=== PATIENT | male | born 1960 | race Caucasian/White ===

== ENCOUNTER 2020-11-11 12:17 | Emergency (ER) | payer MEDICARE, SELFPAY ==
[2020-11-11 12:18] VITALS: BP 146/106; PULSE 113; RESP 20; TEMP 36.8; O2SAT 97; BMI 30.1
--- NOTE | 2020-11-11 12:49 | HMH.EDGENADL ---
ED Disposition Clinical Impression: Sciatic leg pain, Muscle spasm Disposition: Home, Self-Care Condition on Discharge: Good Instructions: DI for Back Pain With Sciatica Prescriptions: Cyclobenzaprine HCl [Flexeril 10mg tablet] 5 mg PO TID PRN #5 tab PRN Reason: spasm Prescription Printed methylPREDNISolone [Medrol] 4 mg PO DIRECTED #21 pack Prescription Printed Referrals: Aldo Cavazos [Primary Care Provider] - 3 days - Critical Care Critical Care Time: No Attestation: On , the high probability of a clinically significant, sudden or life threatening deterioration of the following system(s) required my full and direct attention, intervention and personal management. The time I documented below is in addition to time spent performing reported procedures but includes the following listed in this critical care notation. Medical Decision Making - Medical Records Medical records reviewed: Yes: I reviewed the patient's medical records. - Jamison Inquiry Pt receiving controlled substance: No Vital Signs: 11/11/20 12:18 Temperature 98.3 F Temperature Source Oral Pulse Rate [Right Radial] 113 H Respiratory Rate 20 Blood Pressure [Right Arm] 146/106 H Blood Pressure Mean [Right Arm] 119 Blood Pressure Source [Right Arm] Automatic Cuff Blood Pressure Position [Right Arm] Sitting 02 Sat by Pulse Oximetry 97 Oxygen Delivery Method Room Air Medical Decision Narrative: Patient with only new complaint of back pain. His shortness of breath is baseline and not new, so this will not need emergency department work-up. His oxygen saturations are 97% on room air. He states history of concern today is his right lower back pain. He does have a palpable muscle spasm in the right lower back. Flexeril may not be efficacious if it is significantly out of date. He has ibuprofen at home, will prescribe Flexeril and Medrol Dosepak, advised follow-up with primary care provider to consider physical therapy and appointment with spine surgeon in the event he needs more specialized or advanced care. He does not describe any symptomology and exam findings are inconsistent with cauda equina, epidural abscess, discitis, AAA, obstructive uropathy. General Adult HPI - General Chief complaint: PAIN Stated complaint: SOA, back pain, COPD Time Seen by Provider: 11/11/20 12:30 Mode of Arrival: Ambulatory Source of Information: Patient, Spouse Limitations: No Limitations Description of Symptoms (Recalled from ER Triage Doc. by RN): Pt reports lower back pain, that has began radiating down R Leg, pt reports pain x3 days, no known injury. Pt reports SOA x3 days, pt reports hx of COPD. Pt denies cough, fever or sick contacts. - History of Present Illness HPI narrative: This is a 60-year-old male with a past medical history significant for COPD, Back problems who presents to the emergency department for a knot in his right lower back that radiates pain down the back of his right leg. This has been present for about 3 days. No trauma. He states his shortness of breath is baseline and not new. He denies any loss of bowel or bladder control. No IV drug abuse or fever. He has had pain in his back similar to this, but never this extensive. He states his pain is better if he puts pillows underneath his knees and lies flat. It is worse with movement or bending. Patient has been trying to use Flexeril at home, but he states it is out of date. He has also been using ibuprofen with no persistent relief of symptoms. - Related Data Previous Rx's Medication Instructions Recorded Cyclobenzaprine HCl [Flexeril 10mg 5 mg PO TID PRN #5 tab 11/11/20 tablet] methylPREDNISolone [Medrol] 4 mg PO DIRECTED #21 pack 11/11/20 Allergies Allergy/AdvReac Type Severity Reaction Status Date / Time acetaminophen [From TYLENOL] Allergy Unknown STOMACH Unverified 10/03/17 14:56 IRRITATION hydrocodone Allergy Verified
[2020-11-11 13:36] VITALS: BP 156/104; PULSE 114; RESP 16; TEMP 36.8; O2SAT 99
== END 2020-11-11 13:36 | disposition home or self-care (01) ==
PROVIDERS: Emergency Provider Emergency Medicine; PCP Pediatrics
DX: M54.41 Lumbago with sciatica, right side (principal); M62.830 Muscle spasm of back; J44.9 Chronic obstructive pulmonary disease, unspecified; Z88.0 Allergy status to penicillin; Z79.899 Other long term (current) drug therapy
CPT/HCPCS: 96372; 99281

== ENCOUNTER 2020-12-02 12:38 | Emergency (ER) | payer MEDICARE, SELFPAY ==
[2020-12-02] VITALS (8 sets, daily range): BP systolic 130–154; BP diastolic 93–103; PULSE 69–89; RESP 19–20; TEMP 36.7–37.1; O2SAT 99–100; BMI 31.5
--- NOTE | 2020-12-02 12:48 | HMH.EDGENADL ---
ED Disposition Clinical Impression: Ribs, multiple fractures Qualifiers: Encounter type: initial encounter Fracture type: closed Laterality: right Qualified Code(s): S22.41XA - Multiple fractures of ribs, right side, initial encounter for closed fracture Disposition: Home, Self-Care Condition on Discharge: Fair Instructions: DI for Rib Fracture Additional Instructions: Percocet as needed for pain. Additional instructions for RIB INJURIES: See your physician as soon as possible for further evaluation. Hold a pillow against your injured ribs to help with pain when coughing or sneezing. Sleep with several pillows to help support you in the most comfortable position. Take deep breaths frequently. Return immediately if shortness of breath, intolerable pain, coughing of blood, abdominal pain or vomiting. Additional instructions for CONTROLLED SUBSTANCES: You have been prescribed a medication that is a controlled substance. Controlled substances include pain medications known as opiates and sedative nerve medications known as benzodiazepines. Tramadol, fioricet, and gabapentin are also controlled substances. Some common opiates include: Codeine (such as Tylenol #3) Hydrocodone (Vicodin, Lortab, Lorcet, [place]) Oxycodone (Percocet, Percodan, Oxycodone, Oxy IR) Some common benzodiazepines include: Diazepam (Valium) Lorazepam (Ativan) Alprazolam (Xanax) Clonazepam (Klonopin) Oxazepam (Serax) All of these controlled substances are highly addictive and frequently abused. Misuse can and frequently does lead to addiction as well as overdose and . Medication should be stored in a locked cabinet or other secure storage unit. Do not store the medication in a motor vehicle. Short term supplies, 3 days or less, are prescribed because of the highly addictive nature of the medication. Any of the controlled substance medication NOT taken should be disposed of properly and NOT SAVED. The recommended method of disposing of unused medications is: Place the medicines in a sealable plastic bag. If the medicine is a solid, crush it or add water to dissolve it. Add something undesirable (cat litter, coffee grounds, etc.) Dispose of sealed bag in household trash Do not flush or pour unused medicines down a sink or drain. Controlled substances should not be shared, given away or sold. Because of the addictive nature and frequent abuse, these medications are sometimes stolen. These medications should be kept in a safe place where they cannot be stolen. Do not keep them in your car or purse. Lost or stolen prescriptions for controlled substances WILL NOT BE REFILLED in this emergency department, regardless of whether a police report was filed. Bad tableReferrals: PCP,No [Primary Care Provider] - - Critical Care Critical Care Time: No Attestation: On 12/02/20, the high probability of a clinically significant, sudden or life threatening deterioration of the following system(s) required my full and direct attention, intervention and personal management. The time I documented below is in addition to time spent performing reported procedures but includes the following listed in this critical care notation. Medical Decision Making - Jamison Inquiry Pt receiving controlled substance: Yes Jamison was queried for this patient: Yes Risks and benefits of using a controlled substance: were discussed with pt by me Comment: last rx 11/25/20 20 tramadol Vital Signs: 12/02/20 12:39 12/02/20 13:09 12/02/20 13:30 Temperature 98.7 F Temperature Source Oral Pulse Rate Pulse Rate [Left Radial] 79 89 81 Respiratory Rate 20 20 19 Blood Pressure Blood Pressure [Right Arm] 150/103 H 130/97 H Blood Pressure Mean [Right Arm] 118 108 Blood Pressure Source Blood Pressure Source [Right Arm] Automatic Cuff Blood Pressure Position Blood Pressure Position [Right Arm] Sitting 02 Sat by Pulse Oximetry 100
--- NOTE | 2020-12-02 12:57 | CT_ITS ---
PROCEDURE: CT ANGIO CHEST CLINCIAL INDICATION: chest trauma Status post fall x4 days complaining of severe right rib pain and right lung pain. COMPARISON: CT [facility] CTA-CHEST from 06/24/2015 TECHNIQUE: IV Contrast: 70ML Isovue 370 Axial images obtained with sagittal and coronal reformats. All CT scans at the facility use one or more dose reduction, viz: automated exposure control, ma/kV adjustment per patient size (including targeted exams where dose is matched to indication, i.e. head), or iterative reconstruction technique. FINDINGS: A benign calcified granuloma is incidentally noted. The lungs are otherwise well expanded and clear with no infiltrate, pulmonary edema, or pleural effusion. Partial visualization of the thyroid gland is unremarkable. There is no suspicious thoracic adenopathy. There is a small hiatal hernia. The major thoracic vasculature the including the pulmonary arteries has a normal appearance. Specifically there is no pulmonary embolus, aortic dissection, aortic rupture or other vascular abnormality. Patient has had prior cholecystectomy. There are scattered diverticuli in visualized portions of the colon. Minimal visualization of the upper abdomen is otherwise unremarkable. Patient has had prior right shoulder replacement. There are degenerative changes throughout the skeleton. IMPRESSION: Small hiatal hernia. Otherwise unremarkable exam. Specifically no pulmonary embolus or other vascular abnormality. Dictated by: Nighat Villalobos MD 12/02/2020 14:43 Nighat Villalobos MD in [place] 12/02/2020 14:43
[2020-12-02 13:24] LABS: Chloride 109 mmol/L (98-107); Potassium 4.2 mmoL/L (3.5-5.1); Sodium 139 mmol/L (136-145)
[2020-12-02 13:25] LABS: Basophils # 0.1 K/mm3 (0-0.2); Eosinophils # 0.3 K/mm3 (0.0-0.4); Eosinophils % 5.2 % (0.1-12.0); Hematocrit 40.2 % (42.0-52.0); Hemoglobin 12.6 g/dL (14.1-18.0); Lymphocytes % 35.6 % (10-50); Mean Corpuscular HGB Conc 31.4 g/dL (31.8-35.4); Mean Corpuscular Volume 92.2 fl (80-94); Mean Platelet Volume 7.4 fl (7.4-10.4); Monocytes # 0.3 K/mm3 (0.1-1.0); Monocytes % 5.7 % (1.7-9.3); Neutrophils # 2.9 K/mm3 (1.8-7.8); Neutrophils % 52.5 % (37.0-80.0); Platelet Count 263 K/mm3 (142-424); Red Blood Count 4.36 M/mm3 (4.60-6.20); Red Cell Distribution Width 16.2 % (11.5-17.5); White Blood Count 5.5 K/mm3 (4.8-10.8)
[2020-12-02 13:27] LABS: Alanine Aminotransferase 46 U/L (12-78); Albumin Level 4.1 g/dl (3.5-5.0); Albumin/Globulin Ratio 1.2 (1.1-1.8); Alkaline Phosphatase 97 U/L (38-126); Anion Gap 10.2 mEq/L (5-15); Aspartate Amino Transferase 42 U/L (17-59); Bilirubin,Total 0.6 mg/dl (0.2-1.3); Blood Urea Nitrogen 14 mg/dl (9-20); Carbon Dioxide 24 mmol/L (22.0-30.0); Creatinine Clearance Estimated 109 mL/min (50-200); Estimated Glomerular Filt Rate 98 ml/min (>60); GFR (African American) 119 ML/MIN (>60); Globulin 3.3 g/dL (1.3-3.2); Total Protein,Serum 7.4 g/dl (6.3-8.2)
[2020-12-02 13:28] LABS: Glucose 113 mg/dl (74-100)
--- NOTE | 2020-12-02 13:42 | PC.NURSE ---
Pt to rad.
--- NOTE | 2020-12-02 14:32 | PC.NURSE ---
Patient reports I heard something pop in my right side a few minutes ago and now I am hurting really bad . ER provider notified at this time, awaiting further orders.
== END 2020-12-02 15:44 | disposition home or self-care (01) ==
PROVIDERS: Emergency Provider Emergency Medicine
DX: S22.41XA Multiple fractures of ribs, right side, initial encounter for closed fracture (principal); V57.1XXA Passenger in pick-up truck or van injured in collision with fixed or stationary object in nontraffic accident, initial encounter; Y92.89 Other specified places as the place of occurrence of the external cause; Z88.0 Allergy status to penicillin
CPT/HCPCS: 71275; 80053; 85025; 96374; 96375; 99283; J2405; Q9967

== ENCOUNTER 2020-12-08 15:00 | Emergency (ER) | payer MEDICARE, SELFPAY ==
[2020-12-08 15:03] VITALS: BP 140/81; PULSE 87; RESP 18; TEMP 36.8; O2SAT 99; BMI 30.1
--- NOTE | 2020-12-08 15:33 | HMH.EDGENADL ---
ED Disposition Clinical Impression: Ribs, multiple fractures Qualifiers: Encounter type: initial encounter Fracture type: closed Laterality: right Qualified Code(s): S22.41XA - Multiple fractures of ribs, right side, initial encounter for closed fracture Disposition: Home, Self-Care Condition on Discharge: Good Instructions: DI for Rib Fracture Additional Instructions: Additional instructions for RIB INJURIES: See your physician as soon as possible for further evaluation. Hold a pillow against your injured ribs to help with pain when coughing or sneezing. Sleep with several pillows to help support you in the most comfortable position. Take deep breaths frequently. Return immediately if shortness of breath, intolerable pain, coughing of blood, abdominal pain or vomiting. Additional instructions for CONTROLLED SUBSTANCES: You have been prescribed a medication that is a controlled substance. Controlled substances include pain medications known as opiates and sedative nerve medications known as benzodiazepines. Tramadol, fioricet, and gabapentin are also controlled substances. Some common opiates include: Codeine (such as Tylenol #3) Hydrocodone (Vicodin, Lortab, Lorcet, [place]) Oxycodone (Percocet, Percodan, Oxycodone, Oxy IR) Some common benzodiazepines include: Diazepam (Valium) Lorazepam (Ativan) Alprazolam (Xanax) Clonazepam (Klonopin) Oxazepam (Serax) All of these controlled substances are highly addictive and frequently abused. Misuse can and frequently does lead to addiction as well as overdose and . Medication should be stored in a locked cabinet or other secure storage unit. Do not store the medication in a motor vehicle. Short term supplies, 3 days or less, are prescribed because of the highly addictive nature of the medication. Any of the controlled substance medication NOT taken should be disposed of properly and NOT SAVED. The recommended method of disposing of unused medications is: Place the medicines in a sealable plastic bag. If the medicine is a solid, crush it or add water to dissolve it. Add something undesirable (cat litter, coffee grounds, etc.) Dispose of sealed bag in household trash Do not flush or pour unused medicines down a sink or drain. Controlled substances should not be shared, given away or sold. Because of the addictive nature and frequent abuse, these medications are sometimes stolen. These medications should be kept in a safe place where they cannot be stolen. Do not keep them in your car or purse. Lost or stolen prescriptions for controlled substances WILL NOT BE REFILLED in this emergency department, regardless of whether a police report was filed. Prescriptions: Oxycodone HCl/Acetaminophen [Percocet 5/325mg tablet] 1 tab PO Q6HP PRN #20 tablet PRN Reason: Moderate To Severe Pain Transmission Status: Received by [facility]/pharmacy #[id number] Referrals: Aldo Cavazos [Primary Care Provider] - - Critical Care Critical Care Time: No Attestation: On 12/08/20, the high probability of a clinically significant, sudden or life threatening deterioration of the following system(s) required my full and direct attention, intervention and personal management. The time I documented below is in addition to time spent performing reported procedures but includes the following listed in this critical care notation. Medical Decision Making - Jamison Inquiry Pt receiving controlled substance: Yes Jamison was queried for this patient: Yes Risks and benefits of using a controlled substance: were discussed with pt by me Comment: No controlled substances prescriptions since prescription I wrote on 12/02 Vital Signs: 12/08/20 15:03 Temperature 98.3 F Temperature Source Oral Pulse Rate [Left Radial] 87 Respiratory Rate 18 Blood Pressure [Left Arm] 140/81 Blood Pressure Mean [Left Arm] 100 Blood Pressure Source [Left Arm] Automatic Cuff Blood Pressure Position [Left Arm
[2020-12-08 15:50] VITALS: BP 141/82; PULSE 65; RESP 16; TEMP 36.8; O2SAT 98
== END 2020-12-08 15:52 | disposition home or self-care (01) ==
PROVIDERS: Emergency Provider Emergency Medicine; PCP Pediatrics
DX: S44 Injury of nerves at shoulder and upper arm level (principal); J44.9 Chronic obstructive pulmonary disease, unspecified; Z87.891 Personal history of nicotine dependence; Z88.0 Allergy status to penicillin; Z88.5 Allergy status to narcotic agent
CPT/HCPCS: 99281

== ENCOUNTER 2021-01-13 09:02 | Emergency (ER) | payer MEDICARE, SELFPAY ==
[2021-01-13 09:02] VITALS: BP 140/81; PULSE 83; RESP 18; TEMP 36.7; O2SAT 100; BMI 30.1
--- NOTE | 2021-01-13 09:14 | HMH.EDSKAF ---
ED Disposition Clinical Impression: Rash and nonspecific skin eruption Disposition: Home, Self-Care Condition on Discharge: Good Instructions: DI for Rash, DI for Cellulitis -- Adult, DI for Skin Abscess Additional Instructions: Please take all medications as prescribed. Follow-up with your primary care physician in about 3 to 5 days if your symptoms do not improve. Prescriptions: Sulfamethoxazole/Trimethoprim [Bactrim DS tablet] 2 each PO BID #28 tab Transmission Status: Pending to [facility]pharmacy #[id number] Oxycodone HCl/Acetaminophen [Percocet 5/325mg tablet] 1 tab PO Q6H PRN #15 tab PRN Reason: pain Transmission Status: Received by [facility]acy #[id number] Referrals: Aldo Cavazos [Primary Care Provider] - - Critical Care Critical Care Time: No Attestation: On 01/13/21, the high probability of a clinically significant, sudden or life threatening deterioration of the following system(s) required my full and direct attention, intervention and personal management. The time I documented below is in addition to time spent performing reported procedures but includes the following listed in this critical care notation. Medical Decision Making - Jamison Inquiry Pt receiving controlled substance: Yes Jamison was queried for this patient: Yes Risks and benefits of using a controlled substance: were discussed with pt by me - Lab Data Lab results reviewed: No: I reviewed the patient's lab results. Orders (Tests/Meds): ED MEDICATIONS Discontinued Medications Generic Name Dose Route Start Last Admin Trade Name Freq PRN Reason Stop Dose Admin Morphine Sulfate 2 mg 01/13/21 09:10 Morphine 2mg/Ml Syringe IM 01/13/21 09:11 ONCE ONE ORDERS Category Date Time Status Wound Culture and Gram Stain Routine Micro 01/13/21 09:11 Ordered Medical Decision Narrative: The patient presents to the emergency department complaining of a 3-day history of painful rash of the anterior chest wall. He denies any other symptoms. On examination the anterior chest wall has a moderately sized rash about 15 x 20 cm in size. It is well demarcated, it has vesicles, pustules, and some crusting. It is symmetrical. The rash itself is suggestive of shingles. However, it is centrally located and not along a dermatome. Therefore shingles is less likely. The patient will be treated with pain medication and Bactrim as an outpatient. A wound culture was obtained from one of the pustules. The culture results are pending. Patient has been advised to follow-up with his primary care physician if his symptoms do not improve within the next few days. Skin/Abscess/FB HPI - General Chief complaint: Skin/Abscess/Foreign Body Stated complaint: painful rash on chest Time Seen by Provider: 01/13/21 09:15 Mode of Arrival: Ambulatory Source of Information: Patient Limitations: No Limitations - History of Present Illness HPI narrative: The patient presents to the emergency department complaining of a painful rash in the center of his chest. This began about 3 days ago. He denies any fevers or prodrome. Any other rashes or symptoms. MD complaint: rash Onset (ago): day(s) (3) Location: chest Severity: moderate Severity scale (1-10): 7 Quality: burning, aching Consistency: constant Relieving factors: none Exacerbating factors: none Context: none Associated symptoms: denies other symptoms Treatments prior to arrival: none - Related Data Previous Rx's Medication Instructions Recorded Oxycodone HCl/Acetaminophen 1 tab PO Q6HP PRN #20 tab 12/02/20 [Percocet 10-325 mg Tablet] Oxycodone HCl/Acetaminophen 1 tab PO Q6HP PRN #20 tab 12/02/20 [Percocet 10-325 mg Tablet] Oxycodone HCl/Acetaminophen 1 tab PO Q6HP PRN #20 tab 12/08/20 [Percocet 5/325mg tablet] Oxycodone HCl/Acetaminophen 1 tab PO Q6H PRN #15 tab 01/13/21 [Percocet 5/325mg tablet] Sulfamethoxazole/Trimethoprim 2 each PO BID #28 tab 01/13/21 [Bactr
[2021-01-13 09:39] VITALS: BP 154/76; PULSE 88; RESP 18; TEMP 36.8; O2SAT 98
--- NOTE | 2021-01-15 07:04 | PC.NURSE ---
Positive cultures called from Lab, Dr Tinoco notified. Pt was RX'd Bactrum DS and organism is susceptible.
== END 2021-01-13 09:37 | disposition home or self-care (01) ==
PROVIDERS: Emergency Provider Emergency Medicine; PCP Pediatrics
DX: R21 Rash and other nonspecific skin eruption (principal); J44.9 Chronic obstructive pulmonary disease, unspecified; Z88.0 Allergy status to penicillin; Z88.5 Allergy status to narcotic agent
CPT/HCPCS: 87070; 87077; 87186; 87205; 99281

== ENCOUNTER 2022-05-22 11:02 | Emergency (ER) | payer MEDICARE, SELFPAY ==
[2022-05-22 11:02] VITALS: BP 122/74; PULSE 78; RESP 16; TEMP 36.6; O2SAT 99
[2022-05-22 11:15] VITALS: BP 122/74; PULSE 78; RESP 16; TEMP 36.6; O2SAT 98
--- NOTE | 2022-05-22 11:15 | PC.NURSE ---
pt wants to sign out ama. spoke with pt regarding potential risks
--- NOTE | 2022-05-22 11:15 | PC.NURSE ---
pt is waiting in room, does not want to be seen, [place] count ems, brought pt in,
--- NOTE | 2022-05-22 11:19 | PC.NURSE ---
ED MD AT BEDSIDE
--- NOTE | 2022-05-22 11:24 | HMH.EDGENADL ---
ED Disposition Clinical Impression: Drug overdose Qualifiers: Encounter type: initial encounter Injury intent: undetermined intent Qualified Code(s): T50.904A - Poisoning by unspecified drugs, medicaments and biological substances, undetermined, initial encounter Disposition: Left Against Medical Advice Condition on Discharge: Undetermined Referrals: Provider,Referral, [Primary Care Provider] - - Critical Care Critical Care Time: No Attestation: On 05/22/22, the high probability of a clinically significant, sudden or life threatening deterioration of the following system(s) required my full and direct attention, intervention and personal management. The time I documented below is in addition to time spent performing reported procedures but includes the following listed in this critical care notation. Medical Decision Making - Jamison Inquiry Pt receiving controlled substance: No Medical Decision Narrative: 61-year-old male presents emergency department after taking 3 Percocets today total 30 mg oxycodone. Patient wanted to leave AGAINST MEDICAL ADVICE. Benign physical examination. Patient was advised to stay and informed that he could have damage to his liver from taking too much acetaminophen, patient was informed that he could have recurrent respiratory depression and could have organ damage or after the Narcan wears off with persistence of the oxycodone. Patient understood these risks and understood that the Narcan could wear off faster than the oxycodone causing him to not breathe again, with patient having GCS 15 and able to make his own decisions and patient signing out AGAINST MEDICAL ADVICE. General Adult HPI - General Chief complaint: Overdose Stated complaint: overdose Time Seen by Provider: 05/22/22 11:24 - History of Present Illness HPI narrative: 61-year-old male presents emergency department stating that he took 3 total Percocet 10 mg tablets this morning, with EMS giving patient 4 mg Narcan in route to the emergency department. Patient is GCS 15 at presentation and is wanting to leave AGAINST MEDICAL ADVICE. Patient states that he took the medicine due to back pain and states that he has past medical history of bowel surgery unspecified, states that he has allergy to hydrocodone. Patient denies fevers vomiting diarrhea chest pain or shortness of breath today. - Related Data Previous Rx's Medication Instructions Recorded Oxycodone HCl/Acetaminophen 1 tab PO Q6HP PRN #20 tab 12/02/20 [Percocet 10-325 mg Tablet] Oxycodone HCl/Acetaminophen 1 tab PO Q6HP PRN #20 tab 12/02/20 [Percocet 10-325 mg Tablet] Oxycodone HCl/Acetaminophen 1 tab PO Q6HP PRN #20 tab 12/08/20 [Percocet 5/325mg tablet] Oxycodone HCl/Acetaminophen 1 tab PO Q6H PRN #15 tab 01/13/21 [Percocet 5/325mg tablet] Sulfamethoxazole/Trimethoprim 2 each PO BID #28 tab 01/13/21 [Bactrim DS tablet] Allergies Allergy/AdvReac Type Severity Reaction Status Date / Time acetaminophen [From TYLENOL] Allergy Unknown STOMACH Verified 11/11/20 12:57 IRRITATION hydrocodone Allergy Verified 11/11/20 12:33 Penicillins Allergy Verified 11/11/20 12:33 [facility] History - Hepatitis A Screen Attestation statement:: This patient has been screened for Hepatitis A risk factors. I have reviewed the patient's past medical history: Yes Medical History: Reports:: Chronic Obstructive Pulmonary Disease (COPD) Other Surgeries: Yes: Other (Bowel surgery unspecified) - Social History Smoking Status: Former smoker Alcohol Intake: never Occupational Status: previously employed ROS Obtained: Yes All systems reviewed & no additional complaints Physical Exam - General General appearance: alert, in no apparent distress, anxious - Head Head exam: atraumatic, normocephalic - Eye Eye exam: Present: PERRL, EOMI - Neck Neck exam: Present: full ROM, trachea midline - Respiratory Respiratory exam: Present:
== END 2022-05-22 11:30 | disposition left against medical advice (07) ==
PROVIDERS: Emergency Provider Student in an Organized Health Care Education/Training Program
DX: T40.2X1A Poisoning by other opioids, accidental (unintentional), initial encounter (principal); Z53.29 Procedure and treatment not carried out because of patient's decision for other reasons; Z87.891 Personal history of nicotine dependence
CPT/HCPCS: 99283

== ENCOUNTER 2023-03-19 13:10 | Emergency (ER) | payer MEDICARE, SELFPAY ==
[2023-03-19 13:12] VITALS: BP 154/94; PULSE 86; RESP 18; TEMP 36.8; O2SAT 100; BMI 28.7
[2023-03-19 13:30] VITALS: BP 141/94; PULSE 86; RESP 18; O2SAT 100
--- NOTE | 2023-03-19 13:49 | HMH.EDEAR ---
Discharge Plan Disposition Patient Disposition: Home, Self-Care Prescriptions Prescriptions: New sulfamethoxazole-trimethoprim [Bactrim DS] 800-160 mg Tablet 1 tab PO Q12H Qty: 14 0RF cefdinir [cefdinir] 300 mg capsule 300 mg PO BID Qty: 14 0RF No Action oxycodone-acetaminophen 1 EACH tablet 1 tab PO Q6HP PRN (Reason: Moderate To Severe Pain) Qty: 20 0RF oxycodone-acetaminophen 1 EACH tablet 1 tab PO Q6HP PRN (Reason: Moderate To Severe Pain) Qty: 20 0RF oxycodone-acetaminophen 1 EACH tablet 1 tab PO Q6HP PRN (Reason: Moderate To Severe Pain) Qty: 20 0RF oxycodone-acetaminophen 1 EACH tablet 1 tab PO Q6H PRN (Reason: pain) Qty: 15 0RF sulfamethoxazole-trimethoprim 1 EACH tablet 2 each PO BID Qty: 28 0RF Referrals Follow up/Referrals: Barbara Ospina [Primary Care Provider] - See instructions Clinical Impressions Clinical Impression: Cellulitis of external ear, Parotiditis Instructions Patient Instructions: Cellulitis Discharge ED Provider: Earnest (ED)Johnathon Ear HPI General Chief complaint: Ear Stated complaint: ear pain Time Seen by Provider: 03/19/23 13:50 Mode of Arrival: Ambulatory Source of Information: Patient, Relative and Medical Record Limitations: No Limitations Description of Symptoms (Recalled from ER Triage Doc. by RN): Pt c/o R ear pain, pt reports began having burning pain on outside of ear yesterday. Pt reports swelling began this morning and painful inside and outside of ear. Redness noted to cartilage of ear. History of Present Illness HPI Narrative: rt ear pain and jaw pain which started yesterday and noted swelling today - no fever/rash or trauma MD Complaint: ear pain Location: right ear Duration: intermittent Severity: moderate Associated symptoms ear: external ear tenderness Related Data Previous Rx's Medication Instructions Recorded oxycodone-acetaminophen 10 mg-325 1 tab PO Q6HP PRN Moderate To 12/02/ mg tablet Severe Pain #20 tabs oxycodone-acetaminophen 10 mg-325 1 tab PO Q6HP PRN Moderate To 12/02/21 mg tablet Severe Pain #20 tabs oxycodone-acetaminophen 5 mg-325 1 tab PO Q6HP PRN Moderate To 12/08/20 mg tablet Severe Pain #20 tabs oxycodone-acetaminophen 5 mg-325 1 tab PO Q6H PRN pain #15 tabs 01/13/21 mg tablet sulfamethoxazole 800 2 each PO BID #28 tabs 01/13/21 mg-trimethoprim 160 mg tablet cefdinir 300 mg capsule 300 mg PO BID #14 caps 03/19/23 sulfamethoxazole 800 1 tab PO Q12H #14 tabs 03/19/23 mg-trimethoprim 160 mg tablet (Bactrim DS) Allergies Allergy/AdvReac Type Severity Reaction Status Date / Time acetaminophen [From TYLENOL] Allergy Unknown STOMACH Verified 11/11/20 12:57 IRRITATION hydrocodone Allergy Verified 11/11/20 12:33 Penicillins Allergy Verified 11/11/20 12:33 PFSH PFSH Disclaimer: The information contained in this section may have been updated after the patient was seen, as this information can be updated by other users. Social History Smoking Status: Never smoker alcohol intake: never current occupational status: previously employed Travel in the last 8 weeks: None ROS Obtained: Yes All systems reviewed & no additional complaints except as documented Physical Exam General General appearance: alert Head Head exam: normocephalic Eye Eye exam: Present PERRL and EOMI ENT ENT exam: Present mucous membranes moist and other (rt helix red and tender w/o d/c or rash and tm ok but tender rt parotid - no oral lesions - ) Neck Neck exam: Present trachea midline; Absent tenderness Respiratory Respiratory exam: Absent respiratory distress Cardiovascular Cardiovascular exam: Present regular rate Extremities Exam Extremities exam: Present full ROM Neurological Exam Neurological exam: Present alert, oriented X3 and CN II-XII intact; Absent motor sensory deficit Psychiatric Psychiatric exam: Present normal affect Skin Skin exam: Absent rash Lymphatic Lymphati
[2023-03-19 14:12] VITALS: BP 136/91; PULSE 81; RESP 18; TEMP 36.8; O2SAT 99
== END 2023-03-19 14:15 | disposition home or self-care (01) ==
PROVIDERS: Emergency Provider Emergency Medicine; PCP Nurse Practitioner Family
DX: H60.11 Cellulitis of right external ear (principal); K11.8 Other diseases of salivary glands
CPT/HCPCS: 99283; 99284

== ENCOUNTER 2024-12-13 12:38 | Emergency (ER) | payer MEDICARE, SELFPAY ==
[2024-12-13 12:45] VITALS: BP 170/95; PULSE 75; RESP 18; TEMP 36.9; O2SAT 99; BMI 29.2
--- NOTE | 2024-12-13 12:50 | XR_ITS ---
FINAL REPORT CLINICAL HISTORY: fell, left shoulder injury prior shoulder replacement x 2 years ago COMPARISON: None FINDINGS: 3 views of the left shoulder show surgical change from reverse arthroplasty. There is advanced AC joint arthropathy without acute AC joint injury. IMPRESSION: No acute abnormality. Reviewed, Interpreted and Dictated by Eran Dallas MD Transcribed by Shannan Mauricio Authenticated and [facility]
--- NOTE | 2024-12-13 12:53 | XR_ITS ---
FINAL REPORT CLINICAL HISTORY: fall, pain prior shoulder replacement x 2 years ago COMPARISON: None FINDINGS: Two views of the left humerus show surgical changes from left shoulder arthroplasty. There is no evidence of fracture. The joint spaces appear normal. IMPRESSION: No acute abnormality. Reviewed, Interpreted and Dictated by Eran Dallas MD Transcribed by Shannan Mauricio Authenticated and [facility]
[2024-12-13 12:54] VITALS: BP 131/92; PULSE 75; O2SAT 98
[2024-12-13 13:00] VITALS: BP 135/93; PULSE 75; O2SAT 97
--- NOTE | 2024-12-13 13:18 | PC.NURSE ---
Pt has refused CT head/neck. Dr Jeter notified of this.
--- NOTE | 2024-12-13 13:18 | PC.NURSE ---
Pt refused CT imaging
--- NOTE | 2024-12-13 13:33 | HMH.EDGENADL ---
Discharge Plan Disposition Patient Disposition: Home, Self-Care Condition: Good Prescriptions Prescriptions: New methocarbamol 750 mg tablet 750 mg PO Q8H PRN (Reason: pain) Qty: 20 0RF No Action oxycodone-acetaminophen 1 EACH tablet 1 tab PO Q6HP PRN (Reason: Moderate To Severe Pain) Qty: 20 0RF oxycodone-acetaminophen 1 EACH tablet 1 tab PO Q6HP PRN (Reason: Moderate To Severe Pain) Qty: 20 0RF oxycodone-acetaminophen 1 EACH tablet 1 tab PO Q6HP PRN (Reason: Moderate To Severe Pain) Qty: 20 0RF oxycodone-acetaminophen 1 EACH tablet 1 tab PO Q6H PRN (Reason: pain) Qty: 15 0RF sulfamethoxazole-trimethoprim 1 EACH tablet 2 each PO BID Qty: 28 0RF sulfamethoxazole-trimethoprim [Bactrim DS] 800-160 mg Tablet 1 tab PO Q12H Qty: 14 0RF cefdinir [cefdinir] 300 mg capsule 300 mg PO BID Qty: 14 0RF Referrals Follow up/Referrals: Ney Cintron MD [Primary Care Provider] - See instructions Chi Simpson DO [Staff Physician] - See instructions Activity Restrictions/Add. Instructions Additional Instructions/Restrictions: You were evaluated in the emergency department today. At this time, your x-ray and CT scan of your shoulder are reassuring. You do have age-indeterminate fractures of T3 and T4 of your spine, which could be new given that you are having some pain and tenderness there. Please follow-up closely with your primary care provider who can refer you to a customer advisor specialist/pain management for this. forklift supervisor your prescription for Robaxin and to take as needed for pain in addition to Tylenol and ibuprofen. Follow-up with orthopedics for reassessment of your shoulder pain. Return to the emergency department for new or worsening symptoms. Clinical Impressions Clinical Impression: Acute pain of left shoulder, Closed T3 fracture, Closed T4 fracture Stand Alone Forms Stand Alone Forms: Work/School Release Instructions Patient Instructions: DI for Vertebral Fracture, DI for Shoulder Pain Print Language Print Language: Filipino Discharge ED Provider: Rosalba Jeter General Adult HPI <Holly Steen APRN - Last Filed: 12/13/24 13:33> General Chief complaint: Extremity Injury, Upper Stated complaint: AO 2/28/25 10:00, fell, inj left shoulder Time Seen by Provider: 12/13/24 12:54 Mode of Arrival: Ambulatory Source of Information: Patient Limitations: No Limitations Description of Symptoms (Recalled from ER Triage Doc. by RN): Pt states he tripped and fell 3 hours prior to arrival and his having Left shoulder pain. Pt has obvious swelling, deformity, and limited movement. Strong pulse and brisk cap refill. Pt states he did not have LOC, and is not on blood thinners. Pt has a hx of surgery on his left shoulder. Related Data Previous Rx's ?Medication ?Instructions ?Recorded oxycodone-acetaminophen 10 mg-325 1 tab PO Q6HP PRN Moderate To 12/02/20 mg tablet Severe Pain #20 tabs oxycodone-acetaminophen 10 mg-325 1 tab PO Q6HP PRN Moderate To 21 mg tablet Severe Pain #20 tabs oxycodone-acetaminophen 5 mg-325 1 tab PO Q6HP PRN Moderate To 12/08/20 mg tablet Severe Pain #20 tabs oxycodone-acetaminophen 5 mg-325 1 tab PO Q6H PRN pain #15 tabs 01/13/21 mg tablet sulfamethoxazole 800 2 each PO BID #28 tabs 01/13/21 mg-trimethoprim 160 mg tablet cefdinir 300 mg capsule 300 mg PO BID #14 caps 03/19/23 sulfamethoxazole 800 1 tab PO Q12H #14 tabs 03/19/23 mg-trimethoprim 160 mg tablet (Bactrim DS) methocarbamol 750 mg tablet 750 mg PO Q8H PRN pain #20 tabs 12/13/24 Allergies Allergy/AdvReac Type Severity Reaction Status Date / Time acetaminophen (From TYLENOL) Allergy Unknown STOMACH Verified 11/11/20 12:57 IRRITATION hydrocodone Allergy Verified 11/11/20 12:33 Penicillins Allergy Verified 11/11/20 12:33 <Rosalba Jeter DO - Last Filed: 12/13/24 15:18> History of Present Illness HPI narrative: This patient is a 64-year-old male with a history of bilateral shoulder replacements presenting with concern for left shoulder pain after a fall. Patient states that he fell onto his left shoulder 3 hours prior to arrival and is now experiencing severe pain. He is unable to move his left arm at the shoulder secondary to pain. No numbness or tingling distally. No head injury or loss of consciousness. No other concerns noted. He was well prior to this. He does not take blood thinners. [facility] <Holly Steen APRN - Last Filed: 12/13/24 13:33> [facility] Disclaimer: The information contained in this section may have been updated after the patient was seen, as this information can be updated by other users. Social History Smoking Status: Never smoker alcohol intake: never current occupational status: previously employed Travel in the last 8 weeks: None Have you lived/traveled outside [place] in past 30 days?: No Contact w/someone who lives/traveled outside US past 30 days?: No Exposure to someone with infectious disease in past 14 days?: No Do you have a fever (greater than 100.4 F or 38 C)?: No Have you tested positive for COVID-19: No Exposed to someone with COVID-19 in past 14 days?: No Do you have a sore throat?: No Do you have a cough?: No Do you have any weakness?: No Do you have any diarrhea?: No Are you experiencing any unusual bleeding?: No Do you have any muscle aches/pain?: No Do you have any abdominal pain?: No Are you experiencing loss of taste or smell?: No Other Medical History Have you received the Flu Vaccine for this season: No Have you received the Pneumonia Vaccine: No <Rosalba Jeter DO - Last Filed: 12/13/24 15:18> ROS Obtained: Yes All systems reviewed & no additional complaints except as documented Physical Exam <Rosalba Jeter DO - Last Filed: 12/13/24 15:18> General General appearance: alert Comment: Agitated, uncomfortable appearing Head Head exam: atraumatic and normocephalic Eye Eye exam: Present normal appearance, PERRL and EOMI ENT ENT exam: Present normal exam, normal oropharynx, mucous membranes moist and normal external ear exam Neck Neck exam: Present normal inspection, full ROM and trachea midline; Absent tenderness Chest Chest inspection: Present normal inspection and symmetric chest wall rise; Absent tenderness Respiratory Respiratory exam: Present normal lung sounds bilaterally; Absent respiratory distress, wheezes, stridor or accessory muscle use Cardiovascular Cardiovascular exam: Present regular rate and normal rhythm Abdominal Exam Abdominal exam: Present soft; Absent distention, tenderness or guarding Extremities Exam Extremities exam: Present tenderness (Tenderness out of proportion of the left shoulder. No obvious skin defect.), normal capillary refill and other (Holds the left arm in an adducted position refusing to move at the shoulder. Neurovascularly intact distally without other tenderness except the left shoulder.); Absent full ROM (Limited range of motion of the left shoulder secondary to pain) or edema Back Exam Back exam: Present normal inspection and full ROM; Absent tenderness Neurological Exam Neurological exam: Present alert, oriented X3, CN II-XII intact and normal gait; Absent motor sensory deficit Psychiatric Psychiatric exam: Present normal affect and normal mood Skin Skin exam: Present warm and dry Medical Decision Making <Holly Steen APRN - Last Filed: 12/13/24 13:33> Medical Records Screening: Per USPSTF and CDC recommendations, given the prevalence of disease in our region, it is our hospital?s policy to screen for HIV and viral Hepatitis for all patients aged 18 and over and those with ongoing risk factors. Vital Signs: 12/13/24 12:45 12/13/24 12:54 12/13/24 13:00 Temperature 98.5 F Temperature Source Oral Pulse Rate 75 75 Pulse Rate [Right] 75 Respiratory Rate 18 Blood Pressure 131/92 H 135/93 H Blood Pressure [Right Arm] 170/95 H Blood Pressure Mean [Right Arm] 120 Blood Pressure Source [Right Arm] Automatic Cuff Blood Pressure Position [Right Arm] Sitting 02 Sat by Pulse Oximetry 99 98 97 Oxygen Delivery Method Room Air Orders (Tests/Meds): ED MEDICATIONS Discontinued Medications Generic Name Dose Route Start Last Admin Trade Name Freq PRN Reason Stop Dose Admin Acetaminophen 1,000 mg 12/13/24 13:36 12/13/24 13:50 Acetaminophen 500mg Tab PO 12/13/24 13:37 Not Given ONCE ONE Ketorolac Tromethamine 30 mg 12/13/24 13:36 12/13/24 13:49 Ketorolac 30mg/Ml Vial IM 12/13/24 13:37 30 mg ONCE ONE Administration Lidocaine 1 each 12/13/24 13:36 12/13/24 13:50 Lidocaine 5% Transdermal Patch TP 12/13/24 13:37 1 each ONCE ONE Administration Methocarbamol 1,500 mg 12/13/24 13:36 12/13/24 13:50 Methocarbamol 500mg Tablet PO 12/13/24 13:37 1,500 mg ONCE ONE Administration Morphine Sulfate 4 mg 12/13/24 13:34 12/13/24 13:49 Morphine 4mg/Ml Syringe IM 12/13/24 13:35 4 mg ONCE ONE Administration Ondansetron HCl 4 mg 12/13/24 13:36 12/13/24 13:49 Ondansetron 4mg Odt SL 12/13/24 13:37 4 mg ONCE ONE Administration ORDERS Category Date Time Status CT cervical spine wo con Stat Cat Scan 12/13/24 13:[address] head/brain wo con Stat Cat Scan 12/13/24 13:[address] shoulder LT wo con Stat Cat Scan 12/13/24 13:[address] thoracic spine wo con Stat Cat Scan 12/13/24 13:35 Completed Humerus XR left [XR humerus LT] Stat Exams 12/13/24 12:53 Completed Shoulder XR left minimum 2 views [XR shoulder LT min 2V Exams 12/13/24 12:50 Completed ] Stat <Rosalba Jeter, DO - Last Filed: 12/13/24 15:18> Medical Records Medical records reviewed: Yes I reviewed the patient's medical records. [place] Inquiry Pt receiving controlled substance: No Vital Signs: 12/13/24 12:45 12/13/24 12:54 12/13/24 13:00 Temperature 98.5 F Temperature Source Oral Pulse Rate 75 75 Pulse Rate [Right] 75 Respiratory Rate 18 Blood Pressure 131/92 H 135/93 H Blood Pressure [Right Arm] 170/95 H Blood Pressure Mean [Right Arm] 120 Blood Pressure Source [Right Arm] Automatic Cuff Blood Pressure Position [Right Arm] Sitting 02 Sat by Pulse Oximetry 99 98 97 Oxygen Delivery Method Room Air Lab Data Lab results reviewed: Yes I reviewed the patient's lab results. Orders (Tests/Meds): ED MEDICATIONS Discontinued Medications Generic Name Dose Route Start Last Admin Trade Name Freq PRN Reason Stop Dose Admin Acetaminophen 1,000 mg 12/13/24 13:36 12/13/24 13:50 Acetaminophen 500mg Tab PO 12/13/24 13:37 Not Given ONCE ONE Ketorolac Tromethamine 30 mg 12/13/24 13:36 12/13/24 13:49 Ketorolac 30mg/Ml Vial IM 12/13/24 13:37 30 mg ONCE ONE Administration Lidocaine 1 each 12/13/24 13:36 12/13/24 13:50 Lidocaine 5% Transdermal Patch TP 12/13/24 13:37 1 each ONCE ONE Administration Methocarbamol 1,500 mg 12/13/24 13:36 12/13/24 13:50 Methocarbamol 500mg Tablet PO 12/13/24 13:37 1,500 mg ONCE ONE Administration Morphine Sulfate 4 mg 12/13/24 13:34 12/13/24 13:49 Morphine 4mg/Ml Syringe IM 12/13/24 13:35 4 mg ONCE ONE Administration Ondansetron HCl 4 mg 12/13/24 13:36 12/13/24 13:49 Ondansetron 4mg Odt SL 12/13/24 13:37 4 mg ONCE ONE Administration ORDERS Category Date Time Status CT cervical spine wo con Stat Cat Scan 12/13/24 13:[address] head/brain wo con Stat Cat Scan 12/13/24 13:[address] shoulder LT wo con Stat Cat Scan 12/13/24 13:[address] thoracic spine wo con Stat Cat Scan 12/13/24 13:35 Completed Humerus XR left [XR humerus LT] Stat Exams 12/13/24 12:53 Completed Shoulder XR left minimum 2 views [XR shoulder LT min 2V Exams 12/13/24 12:50 Completed ] Stat Medical Decision Narrative: In summary, this patient is a 64-year-old male presenting to the Emergency Department for evaluation of left shoulder pain after a fall. Differential diagnoses considered include but are not limited to fracture, contusion, strain/sprain, dislocation, neurovascular injury, spine injury. Ruling out the most morbid conditions drove assessment. I reviewed patient's past medical records and noted prior evaluation back in 2021 for overdose on oxycodone requiring Narcan. On exam, the patient is uncomfortable appearing with pain out of proportion of the left shoulder. He refuses to range his left shoulder at the shoulder joint secondary to severe pain. He is neurovascularly intact without skin defect. Workup included x-rays of the left shoulder and humerus. I ordered CT head and C-spine but initially he refused to go.. I independently interpreted x-ray prior to the radiologist read and noted satisfactory alignment without obvious acute fracture. Please see their read for final interpretation. Ultimately, patient has continued severe pain and refuses to move his left shoulder. X-rays do not demonstrate any obvious deformity, so after shared decision-making the patient is agreeable for CT head, CT C/T-spine, and CT left shoulder. Patient was given IM morphine, IM Toradol, oral Tylenol, oral Robaxin, topical Lidoderm patch for symptomatic improvement. I independently interpreted CT scan prior to radiology read and noted no intracranial hemorrhage, no obvious fracture of the arm. Radiology does note subtle superior endplate fractures that are age-indeterminate. Patient does have some tenderness here, unclear if this is spinal versus muscle spasm but will advise the patient to follow-up as if this is acute just to be on the safe side. I do not feel that further emergent workup is indicated in the ED as he is neurologically intact without pain elsewhere. I feel he is appropriate for discharge with prescription for Robaxin and instruction for supportive management and close follow-up. Strict return precautions were given. Critical Care <Rosalba Jeter, DO - Last Filed: 12/13/24 15:18> Critical Care Time Critical Care Time: No
--- NOTE | 2024-12-13 13:34 | CT_ITS ---
FINAL REPORT TECHNIQUE: Axial images of the left shoulder was performed by computed tomography. Sagittal and coronal reformatted images were obtained and reviewed. This study was performed with techniques to keep radiation doses as low as reasonably achievable, (ALARA). Individualized dose reduction techniques using automated exposure control or adjustment of mA and/or kV according to the patient's size were employed. CLINICAL HISTORY: L shoulder pain from fall, neg XR FINDINGS: There are surgical changes from reverse arthroplasty. Arthroplasty hardware is unremarkable. Streak artifact mildly limits assessment of the proximal humerus. No fractures identified. There is an os acromiale of the AC joint with moderate AC joint arthropathy. IMPRESSION: No acute bony or hardware abnormality. Reviewed, Interpreted and Dictated by Eran Dallas MD Transcribed by Sheree Griffiths Authenticated and [facility]
--- NOTE | 2024-12-13 13:35 | CT_ITS ---
FINAL REPORT TECHNIQUE: Thin section axial CT with sagittal reconstruction without contrast This study was performed with techniques to keep radiation doses as low as reasonably achievable, (ALARA). Individualized dose reduction techniques using automated exposure control or adjustment of mA and/or kV according to the patient''s size were employed. CLINICAL HISTORY: fall, trauma, >65, fell, patient is having neck pain FINDINGS: There is minimal degenerative subluxation of C4 on 5. There is moderate diffuse degenerative disc disease and facet arthropathy. No fracture is identified. IMPRESSION: Moderate degenerative changes. Reviewed, Interpreted and Dictated by Eran Dallas MD Transcribed by Sheree Griffiths Authenticated and [facility]
--- NOTE | 2024-12-13 13:35 | CT_ITS ---
FINAL REPORT CLINICAL HISTORY: fall, trauma, >64, fell today - injury to left shoulder and back pain FINDINGS: CT THORACIC SPINE TECHNIQUE: Thin section axial CT with sagittal and coronal reconstructions This study was performed with techniques to keep radiation doses as low as reasonably achievable, (ALARA). Individualized dose reduction techniques using automated exposure control or adjustment of mA and/or kV according to the patient's size were employed. There are mild subtle superior endplate compression fractures of T3 and T4 of questionable age. The remaining vertebral body heights are normal. There is mild diffuse degenerative disc disease without bony canal stenosis. IMPRESSION: Subtle superior endplate compression fractures of T3 and T4, age-indeterminate. MRI could better confirm age of injury. Reviewed, Interpreted and Dictated by Eran Dallas MD Transcribed by Sheree Griffiths Authenticated and [facility]
--- NOTE | 2024-12-13 13:35 | CT_ITS ---
FINAL REPORT TECHNIQUE: Noncontrast exam This study was performed with techniques to keep radiation doses as low as reasonably achievable, (ALARA). Individualized dose reduction techniques using automated exposure control or adjustment of mA and/or kV according to the patient''s size were employed. CLINICAL HISTORY: fall, trauma, >64, pt is having head/neck pain from fall FINDINGS: No abnormal density is seen. Ventricles are normal. There is no hemorrhage. No mass effect is seen. Bone windows show no evidence of fracture. There is lobular mucosal thickening of the inferior left maxillary sinus. IMPRESSION: No acute findings Reviewed, Interpreted and Dictated by Eran Dallas MD Transcribed by Sheree Griffiths Authenticated and [facility]
[2024-12-13] MEDS: KETOROLAC 30MG/ML VIAL 30 MG IM (13:49)
[2024-12-13] MEDS: MORPHINE 4MG/ML SYRINGE 4 MG IM (13:49)
[2024-12-13] MEDS: ONDANSETRON 4MG ODT 4 MG SL (13:49)
[2024-12-13] MEDS: METHOCARBAMOL 500MG TABLET 1500 MG PO (13:50)
[2024-12-13] MEDS: LIDOCAINE 5% TRANSDERMAL PATCH 1 EACH TP (13:50)
[2024-12-13 15:19] VITALS: BP 133/87; PULSE 67; RESP 18; TEMP 36.9; O2SAT 98
== END 2024-12-13 15:19 | disposition home or self-care (01) ==
PROVIDERS: Emergency Provider Emergency Medicine; PCP Family Medicine
DX: S22.049A Unspecified fracture of fourth thoracic vertebra, initial encounter for closed fracture (principal); S22.039A Unspecified fracture of third thoracic vertebra, initial encounter for closed fracture; M25.512 Pain in left shoulder; W01.0XXA Fall on same level from slipping, tripping and stumbling without subsequent striking against object, initial encounter; Y93.89 Activity, other specified
CPT/HCPCS: 70450; 72125; 72128; 73030; 73060; 73200; 96372; 99284; J1885; J2270; Q0162